=== PATIENT | male | born 1995 | race Caucasian/White ===

== ENCOUNTER 2018-01-15 20:05 | Inpatient (IN) | payer BC ==
[2018-01-15] MEDS ORDERED: diphenhydrAMINE 50 MG/ML 1 ML VIAL IVP STA (20:15)
[2018-01-15] MEDS ORDERED: methylPREDNISolone SOD SUCCI 125 MG/2 ML VIAL IV STA (20:17)
[2018-01-15] MEDS ORDERED: FAMOTIDINE 20 MG/2 ML VIAL IV STA (20:17)
[2018-01-15] MEDS ORDERED: IPRATROPIUM-ALBUTEROL 3 ML NEB INHALATION STA (20:24)
--- NOTE | 2018-01-15 20:29 | ED ---
General Adult HPI - General Chief complaint: Allergic Reaction Stated complaint: allergic reaction Time Seen by Provider: 01/15/18 20:13 Source: patient, family, RN notes reviewed Mode of arrival: wheelchair Limitations: no limitations - History of Present Illness Initial comments: Patient is a pleasant 22-year-old male presenting to the emergency department for concern regarding ALLERGIC reaction. Patient does have a history of ALLERGIES to pistachios. Patient was eating cashews today. Patient is concerned now he is having a reaction. Patient mostly complains of swelling around his eyes. Patient states his skin is only slightly itchy. Patient does admit to having some swelling of his throat, and mouth. Patient does admit to feeling somewhat short of breath. Symptoms just started prior to arrival. - Related Data Allergies Allergy/AdvReac Type Severity Reaction Status Date / Time pistachio nut Allergy Anaphylaxis Verified 01/15/18 20:11 Review of Systems ROS Statement: Those systems with pertinent positive or pertinent negative responses have been documented in the HPI. ROS Other: All systems not noted in ROS Statement are negative. Constitutional: Denies: fever Eyes: Reports: other (Swelling of the periorbital region) ENT: Denies: ear pain Respiratory: Reports: dyspnea Cardiovascular: Denies: chest pain Endocrine: Denies: fatigue Gastrointestinal: Denies: abdominal pain Genitourinary: Denies: dysuria Musculoskeletal: Denies: back pain Skin: Denies: rash Neurological: Denies: weakness Past Medical History Past Medical History: No Reported History History of Any Multi-Drug Resistant Organisms: None Reported Past Surgical History: No Surgical Hx Reported Past Psychological History: No Psychological Hx Reported Smoking Status: Never smoker Past Alcohol Use History: Occasional Past Drug Use History: None Reported General Exam Limitations: no limitations General appearance: alert Head exam: Present: atraumatic Eye exam: Present: other (Angioedema of the periorbital region, moderate to severe) ENT exam: Present: other (Mild perioral angioedema. Mild angioedema of the tongue. Mild to moderate angioedema of the pharynx.) Neck exam: Present: normal inspection Respiratory exam: Present: wheezes (Mild expiratory wheeze). Absent: respiratory distress Cardiovascular Exam: Present: regular rate, normal rhythm GI/Abdominal exam: Present: soft. Absent: tenderness Extremities exam: Present: normal inspection Neurological exam: Present: alert Psychiatric exam: Present: normal affect, normal mood Skin exam: Present: urticaria Course Vital Signs 01/15/18 01/15/18 01/15/18 20:11 20:30 20:32 Temperature 97.2 F L Pulse Rate 158 H 135 H 135 H Respiratory 20 22 Rate Blood Pressure 141/88 143/79 O2 Sat by Pulse 96 97 Oximetry 01/15/18 01/15/18 20:36 21:05 Temperature Pulse Rate 132 H 117 H Respiratory 18 Rate Blood Pressure 126/82 O2 Sat by Pulse 96 Oximetry Medical Decision Making - Medical Decision Making Patient reexamined and is mildly improved. No respiratory distress. Angioedema has improved approximately 15%. Patient is updated on plan. Case discussed in detail with Dr. Rucker, who will admit for Dr. Nichols. Case is also discussed in detail with Dr. Patel, who will consult for critical care. He does recommend using Decadron 6 mg every 4 hours rather than solu Medrol. Critical Care Time Critical Care Time: Yes Total Critical Care Time: 34 Disposition Clinical Impression: Angioedema, Anaphylaxis Disposition: ADMITTED IP TO THIS [facility] Condition: Serious Is patient prescribed a controlled substance at d/c from ED?: No Referrals: None,Stated [REFERRING] - 1-2 days Decision Time: 21:26
[2018-01-15] MEDS: SODIUM CHLORIDE 0.9% 1,000 ML IV STA ×2 (20:31→22:43)
[2018-01-15] MEDS ORDERED: IPRATROPIUM-ALBUTEROL 3 ML NEB INHALATION PRN (21:26)
[2018-01-15] MEDS ORDERED: diphenhydrAMINE 50 MG/ML 1 ML VIAL IVP PRN (21:27)
[2018-01-15] MEDS ORDERED: NALOXONE 0.4 MG/ML 1 ML VIAL IV PRN (21:28)
[2018-01-15 22:16] LABS: Glucose,Whole Blood 111 mg/dL (75-99)
[2018-01-15 22:37] VITALS: BMI 27.6
[2018-01-15] MEDS: SODIUM CHLORIDE 0.9% 1,000 ML IV SCH (22:43)
[2018-01-16] MEDS: DEXAMETHASONE SOD PHOSPHATE 4 MG/ML 1 ML VIAL IV SCH ×5 (00:25→17:41)
[2018-01-16] MEDS ORDERED: ARTIFICIAL TEARS-HYPROMELLOSE DROPS 15 ML BTL BOTH EYES PRN (04:01)
[2018-01-16 06:54] LABS: Basophils % (A) 0 %; Eosinophils % (A) 1 %; HCT 45.3 % (39.0-53.0); HGB 15.2 gm/dL (13.0-17.5); Lymphocytes # (A) 0.7 k/uL (1.0-4.8); Lymphocytes % (A) 9 %; MCH 30.1 pg (25.0-35.0); MCHC 33.6 g/dL (31.0-37.0); MCV 89.8 fL (80.0-100.0); Mean Platelet Volume 6.3; Monocytes # (A) 0.1 k/uL (0-1.0); Monocytes % (A) 1 %; Neutrophils % (A) 89 %; Platelet Count 225 k/uL (150-450); RBC 5.04 m/uL (4.30-5.90); RDW 12.9 % (11.5-15.5); WBC 7.9 k/uL (3.8-10.6)
[2018-01-16 07:12] LABS: Anion Gap 15 mmol/L; Blood Urea Nitrogen 9 mg/dL (9-20); Calcium 8.8 mg/dL (8.4-10.2); Carbon Dioxide 21 mmol/L (22-30); Chloride 103 mmol/L (98-107); Glucose 158 mg/dL (74-99); Magnesium 1.8 mg/dL (1.6-2.3); Phosphorus 3.9 mg/dL (2.5-4.5); Potassium 4.4 mmol/L (3.5-5.1); Sodium 139 mmol/L (137-145)
[2018-01-16] MEDS: SODIUM CHLORIDE 0.9% 1,000 ML IV SCH (07:30)
[2018-01-16] MEDS ORDERED: SODIUM CHLORIDE 0.9% 1,000 ML IV SCH (09:00)
[2018-01-16] MEDS ORDERED: FAMOTIDINE 20 MG/2 ML VIAL IV SCH (09:00)
[2018-01-16] MEDS: INSULIN ASPART 100 UNIT/ML 1 ML 10 ML VIAL SQ SCH ×2 (12:02→17:41)
[2018-01-16 12:09] LABS: Glucose,Whole Blood 128 mg/dL (75-99)
--- NOTE | 2018-01-16 13:31 | P.HPIM ---
History of Present Illness H&P Date: 01/16/18 Chief Complaint: Anaphylactic reaction This is 22 years old male with past medical history significant for ALLERGY to nuts presents to the hospital with severe anaphylactic reaction after eating cashews. Patient stated that he had some ALLERGIC reaction with eating pistachios long time ago and I was only ticklish feeling in his throat at this time after he ate cashews he experienced lip swelling facial swelling to the point where his eyes were almost closed and patient seek emergent medical attention by coming to the emergency department. Patient was treated with Benadryl and steroids and admitted later to the intensive care unit for further evaluation. Agent was seen by critical care and felt stable for the discharge from critical care unit and transferred to the general medical floor where patient symptoms resolved completely this morning and he feels 100% back normal I would like to go home as soon as possible mother at the bedside and other significant other's Review of Systems 14 systems reviewed and negative except as above Past Medical History Past Medical History: No Reported History History of Any Multi-Drug Resistant Organisms: None Reported Past Surgical History: No Surgical Hx Reported Past Psychological History: No Psychological Hx Reported Smoking Status: Never smoker Past Alcohol Use History: Occasional Past Drug Use History: None Reported Medications and Allergies Allergies Allergy/AdvReac Type Severity Reaction Status Date / Time cashew nut Allergy Anaphylaxis Verified 01/16/18 07:51 pistachio nut Allergy Anaphylaxis Verified 01/15/18 20:11 Physical Exam Vitals: Vital Signs Temp Pulse Pulse Resp BP BP Pulse Ox 01/16/18 11:07 98.9 F 92 20 135/76 96 01/16/18 09:00 99 26 H 125/69 98 01/16/18 08:00 98.7 F 97 20 113/64 97 01/16/18 07:00 90 15 102/63 97 01/16/18 06:30 90 19 102/63 97 01/16/18 06:00 90 20 91/61 96 01/16/18 05:30 92 23 91/61 97 01/16/18 05:00 101 H 21 117/60 98 01/16/18 04:30 89 18 117/60 98 01/16/18 04:00 98.2 F 92 17 113/64 97 01/16/18 03:30 97 25 H 113/64 96 01/16/18 03:00 89 0 L 102/57 96 01/16/18 02:30 85 8 L 102/57 97 01/16/18 02:00 88 8 L 96/50 97 01/16/18 01:30 94 20 96/50 98 01/16/18 01:00 97 20 106/57 98 01/16/18 00:30 103 H 22 106/57 97 01/16/18 00:15 97 12 102/55 98 01/16/18 00:00 97.9 F 96 15 102/55 98 01/15/18 23:45 99 12 102/55 98 01/15/18 23:30 102 H 12 102/55 98 01/15/18 23:15 101 H 5 L 126/75 98 01/15/18 23:00 104 H 12 126/75 98 01/15/18 22:45 107 H 9 L 126/75 97 01/15/18 22:30 103 H 21 126/75 97 01/15/18 22:17 106 H 01/15/18 21:52 97.6 F 117 H 18 117/65 96 01/15/18 21:51 97.4 F L 01/15/18 21:05 117 H 18 126/82 96 01/15/18 20:36 132 H 01/15/18 20:32 135 H 22 143/79 97 01/15/18 20:30 135 H 01/15/18 20:11 97.2 F L 158 H 20 141/88 96 Intake and Output 01/15/18 01/16/18 01/16/18 22:59 06:59 14:59 Intake Total 1100 850 Balance 1100 850 Intake: IV 1100 200 Sodium Chloride 0.9% 1, 200 200 000 ml @ 100 mls/hr IV . Q10H [facility] Rx#:[id number] Sodium Chloride 0.9% 1, 900 000 ml @ 150 mls/hr IV . Q6H40M [facility] Rx#:[id number] Intake, IV Titration 50 Amount Sodium Chloride 0.9% 1, 50 000 ml @ 50 mls/hr IV . Q20H [facility] Rx#:[id number] Oral 600 Other: Voiding Method Toilet # Voids 1 Weight 87.5 kg 87.5 kg Gen.: in stated age, no acute distress, no facial swelling and lip swelling or eye swelling Heart: Normal S1-S2 Lungs: Clear to auscultation bilaterally Abdomen: Soft, no tenderness, positive bowel sounds in all 4 quadrant no guarding or rebound Skin: No new rash Psych: Alert and oriented 3 Neuro: No focal deficit Results CBC & Chem 7: 01/16/18 05:51 01/16/18 05:51 Labs: Abnormal Lab Results - Last 24 Hours (Table) 01/15/18 01/16/18 01/16/18 Range/Units 22:14 05:51 05:51 Lymphocytes # 0.7 L (1.0-4.8) k/uL Carbon Dioxide 21 L (22-30) mmol/L Glucose 158 H (74-99) mg/dL POC Glucose (mg/dL) 111 H (75-99) mg/dL 01/16/18 Range/Units 11:54 Lymphocytes # (1.0-4.8) k/uL Carbon Dioxide (22-30) mmol/L Glucose (74-99) mg/dL POC Glucose (mg/dL) 128 H (75-99) mg/dL Thrombosis Risk Factor Assmnt - Choose All That Apply Any of the Below Risk Factors Present?: No Assessment and Plan Assessment: 1. Anaphylactic reaction. 2. ALLERGY to cashews. 3. Hyperglycemia likely related to steroid use Plan: I had long discussion with patient and his mother at the bedside who both requested that patient goes home today as he is not supposed to go to his own house and he would be going home with his mother patient understands the necessity to return to the hospital if he experienced worsening in the symptoms or having other lip or tongue swelling or having difficulty in breathing patient educated about the use of EpiPen and the future and to avoid allergens as we discussed today including oral knots until he is seen by leasing specialist on outpatient basis to perform all the ALLERGY testing patient was prescribed EpiPen number to and prednisone 80 mg on the base of 1 mg/g for 3 consecutive days patient will receive his last status of Decadron and be discharged home after that
--- NOTE | 2018-01-16 13:32 | P.DS ---
Providers Date of admission: 01/15/18 21:25 Attending physician: Consuelo Scott Consults: 01/15/18 21:28 Consult Physician Stat Consulting Provider: Juan Carlos Patel Reason/Comments: critical care Do you want consulting provider notified?: Yes Primary care physician: [facility] Course: This is 22 years old male who presented to the hospital with anaphylactic reaction discharge planning discussed with his mother at length who was at the bedside and I had long discussion with patient and his mother at the bedside who both requested that patient goes home today as he is not supposed to go to his own house and he would be going home with his mother patient understands the necessity to return to the hospital if he experienced worsening in the symptoms or having other lip or tongue swelling or having difficulty in breathing patient educated about the use of EpiPen and the future and to avoid allergens as we discussed today including oral knots until he is seen by mis specialist on outpatient basis to perform all the ALLERGY testing patient was prescribed EpiPen number to and prednisone 80 mg on the base of 1 mg /g for 3 consecutive days patient will receive his last status of Decadron and be discharged home after that Patient Condition at Discharge: Serious Plan - Discharge Summary Follow up Appointment(s)/Referral(s): None,Stated [REFERRING] - 1-2 days Patient Instructions/Handouts: Food Allergy (DC), Peanut Allergy (GEN) Activity/Diet/Wound Care/Special Instructions: 1.) Regular diet - AVOID NUTS 2.) Schedule allergy testing (patient to call for appointment on Wednesday12/18/17) 3.) Patient to carry Epi-pen in case of allergic reaction
[2018-01-16 15:23] VITALS: BP 133/77; PULSE 103; RESP 16; TEMP 97.9
[2018-01-16 17:32] LABS: Glucose,Whole Blood 131 mg/dL (75-99)
--- NOTE | 2018-01-16 18:09 | P.CNPUL ---
History of Present Illness Consult date: 01/16/18 Requesting physician: Consuelo Scott Reason for consult: other (Acute angioedema an anaphylactic reaction) Chief complaint: Tongue and lips swelling after eating peanuts History of present illness: This is a 22-year-old white male, no previous significant medical history, patient presented with severe anaphylactic reaction after eating cashews last night. Patient was noted to have significant swelling of his lips, tongue was quite swollen, patient was not stridorous, received Decadron, Benadryl, Pepcid, admitted to the ICU, and I was asked to see him on consultation. Patient was placed on Decadron overnight, continued Benadryl and Pepcid, and I saw him early this morning, patient is doing great. He is basically back to normal, asymptomatic. No more swelling of the tongue or the lips, no shortness of breath, no cough, no wheezing. Patient never had a similar history in the past. Review of Systems 14 point review of systems obtained, please refer to pertinent positives in HPI. Otherwise remaining systems are negative. Past Medical History Past Medical History: No Reported History History of Any Multi-Drug Resistant Organisms: None Reported Past Surgical History: No Surgical Hx Reported Past Psychological History: No Psychological Hx Reported Smoking Status: Never smoker Past Alcohol Use History: Occasional Past Drug Use History: None Reported Medications and Allergies Home Medications Medication Instructions Recorded Confirmed Type EPINEPHrine (Auto Inject) [Epipen] 0.3 mg IM ONCE PRN #2 syringe 01/16/18 Rx predniSONE 80 mg PO DAILY 3 Days #12 tab 01/16/18 Rx Allergies Allergy/AdvReac Type Severity Reaction Status Date / Time cashew nut Allergy Anaphylaxis Verified 01/16/18 14:39 pistachio nut Allergy Anaphylaxis Verified 01/16/18 14:39 Physical Exam Vitals: Vital Signs Temp Pulse Pulse Resp BP BP Pulse Ox 01/16/18 15:31 16 01/16/18 15:00 97.9 F 103 H 16 133/77 97 01/16/18 11:07 98.9 F 92 20 135/76 96 01/16/18 09:00 99 26 H 125/69 98 01/16/18 08:00 98.7 F 97 20 113/64 97 01/16/18 07:00 90 15 102/63 97 01/16/18 06:30 90 19 102/63 97 01/16/18 06:00 90 20 91/61 96 18 05:30 92 23 91/61 97 01/16/18 05:00 101 H 21 117/60 98 01/16/18 04:30 89 18 117/60 98 01/16/18 04:00 98.2 F 92 17 113/64 97 01/16/18 03:30 97 25 H 113/64 96 01/16/18 03:00 89 0 L 102/57 96 01/16/18 02:30 85 8 L 102/57 97 01/16/18 02:00 88 8 L 96/50 97 01/16/18 01:30 94 20 96/50 98 01/16/18 01:00 97 20 106/57 98 01/16/18 00:30 103 H 22 106/57 97 01/16/18 00:15 97 12 102/55 98 01/16/18 00:00 97.9 F 96 15 102/55 98 01/15/18 23:45 99 12 102/55 98 01/15/18 23:30 102 H 12 102/55 98 01/15/18 23:15 101 H 5 L 126/75 98 01/15/18 23:00 104 H 12 126/75 98 01/15/18 22:45 107 H 9 L 126/75 97 01/15/18 22:30 103 H 21 126/75 97 01/15/18 22:17 106 H 01/15/18 21:52 97.6 F 117 H 18 117/65 96 01/15/18 21:51 97.4 F L 01/15/18 21:05 117 H 18 126/82 96 01/15/18 20:36 132 H 01/15/18 20:32 135 H 22 143/79 97 01/15/18 20:30 135 H 01/15/18 20:11 97.2 F L 158 H 20 141/88 96 Intake and Output 01/16/18 01/16/18 01/16/18 06:59 14:59 22:59 Intake Total 1100 850 Balance 1100 850 Intake: IV 1100 200 Sodium Chloride 0.9% 1, 200 200 000 ml @ 100 mls/hr IV . Q10H [facility] Rx#:[id number] Sodium Chloride 0.9% 1, 900 000 ml @ 150 mls/hr IV . Q6H40M [facility] Rx#:[id number] Intake, IV Titration 50 Amount Sodium Chloride 0.9% 1, 50 000 ml @ 50 mls/hr IV . Q20H [facility] Rx#:[id number] Oral 600 Other: Voiding Method Toilet Toilet # Voids 1 2 Weight 87.5 kg Physical Exam: Revealed a 22-year-old white male in no distress. Head: Atraumatic, normocephalic. HEENT:[Neck is supple.] [No neck masses.] [No thyromegaly.] [No JVD.] Chest: [Clear throughout, no crackles, no rhonchi, no wheezes.] Cardiac Exam: [Normal S1 and S2, no S3 gallop, no murmur.] Abdomen: [Soft, nontender, no megaly, no rebound, no guarding, normal bowel sounds.] Extremities: [No clubbing, no edema, no cyanosis.] Neurological Exam: [No focal neurologic deficit.] Psychiatric: Normal mood affect and mental status exam Lymphatics: No lymphadenopathy. Skin: Intact, no rashes, no erythema, Results - Laboratory Findings CBC and BMP: 01/16/18 05:51 01/16/18 05:51 Abnormal lab findings: Abnormal Labs 01/15/18 01/16/18 01/16/18 22:14 05:51 05:51 Lymphocytes # 0.7 L Carbon Dioxide 21 L Glucose 158 H POC Glucose (mg/dL) 111 H 01/16/18 01/16/18 11:54 17:25 Lymphocytes # Carbon Dioxide Glucose POC Glucose (mg/dL) 128 H 131 H Assessment and Plan Assessment: Impression: Acute anaphylactic reaction with acute angioedema secondary to severe ALLERGIC reaction to cashews. Recommendation: Patient to be transferred out of the ICU, could even be considered for discharge home today, must be discharged on his present meds including prednisone burst and taper, Benadryl, Zantac, must have an EpiPen prescription, must avoid eating all nuts,, and reevaluate on outpatient basis. Time with Patient: Greater than 30
== END 2018-01-16 18:04 | disposition home or self-care (01) | DRG 916 ==
LOC: EC 20:05 → 6ICU 21:25 → 4MS4W 01-16 10:40
PROVIDERS: ADMIT Internal Medicine; ATTEND Internal Medicine
DX: T78.05XA Anaphylactic reaction due to tree nuts and seeds, initial encounter (principal); T38.0X5A Adverse effect of glucocorticoids and synthetic analogues, initial encounter; T78.3XXA Angioneurotic edema, initial encounter; R73.9 Hyperglycemia, unspecified
CPT/HCPCS: 80048; 83735; 84100; 85025; 94640; 96374; 96375; 99285

== ENCOUNTER 2021-08-22 00:09 | Emergency (ER) | payer BC ==
[2021-08-22 00:20] VITALS: TEMP 98.2
[2021-08-22] MEDS ORDERED: SODIUM CHLORIDE 0.9% 1,000 ML IV STA (00:23)
[2021-08-22 00:47] LABS: Basophils # (A) 0.1 k/uL (0-0.2); Basophils % (A) 1 %; Eosinophils # (A) 0.4 k/uL (0-0.7); Eosinophils % (A) 4 %; HCT 44.6 % (39.0-53.0); HGB 14.5 gm/dL (13.0-17.5); Lymphocytes # (A) 2.5 k/uL (1.0-4.8); Lymphocytes % (A) 30 %; MCH 29.5 pg (25.0-35.0); MCHC 32.6 g/dL (31.0-37.0); MCV 90.7 fL (80.0-100.0); Mean Platelet Volume 6.8; Monocytes # (A) 0.4 k/uL (0-1.0); Monocytes % (A) 4 %; Neutrophils # (A) 4.9 k/uL (1.3-7.7); Neutrophils % (A) 59 %; Platelet Count 258 k/uL (150-450); RBC 4.92 m/uL (4.30-5.90); RDW 11.7 % (11.5-15.5); WBC 8.3 k/uL (3.8-10.6)
[2021-08-22 00:58] VITALS: BP 126/87
[2021-08-22 01:06] LABS: ALT 113 U/L (4-49); AST 54 U/L (17-59); African American GFR (CKD) >90 (>60 ml/min/1.73 sqM); Albumin 4.8 g/dL (3.5-5.0); Alkaline Phosphatase 41 U/L (38-126); Amylase 61 U/L (30-110); Anion Gap 12 mmol/L; Blood Urea Nitrogen 17 mg/dL (9-20); Calcium 9.7 mg/dL (8.4-10.2); Carbon Dioxide 22 mmol/L (22-30); Chloride 104 mmol/L (98-107); Glucose 107 mg/dL (74-99); Lipase 57 U/L (23-300); Magnesium 1.8 mg/dL (1.6-2.3); Non-African American GFR(CKD) >90 (>60 ml/min/1.73 sqM); Potassium 4.2 mmol/L (3.5-5.1); Sodium 138 mmol/L (137-145); Total Bilirubin 0.9 mg/dL (0.2-1.3); Total Protein 7.8 g/dL (6.3-8.2)
--- NOTE | 2021-08-22 01:27 | XR ---
EXAMINATION TYPE: XR chest 2V DATE OF EXAM: 08/22/2021 COMPARISON: NONE HISTORY: Chest pain TECHNIQUE: 2 views FINDINGS: Heart and mediastinum are normal. Lungs are clear. Diaphragm is normal. Bony thorax is norm al. There are chest leads. IMPRESSION: Normal chest.
--- NOTE | 2021-08-22 01:37 | ED ---
General Adult HPI - General Chief complaint: Chest Pain Stated complaint: Chest Pain Time Seen by Provider: 08/22/21 00:22 Source: patient, RN notes reviewed Mode of arrival: ambulatory Limitations: no limitations - History of Present Illness Initial comments: Patient is a 26-year-old male that presents to the emergency department complaining of left-sided chest pain without radiation. He notes he recently got over Covid. He notes the last several days she's felt worse than when he did when he had Covid. He denied any exacerbating factors. He denied any alleviating factors. He notes that the pain comes and goes on its own. He denied any shortness of breath headache nausea vomiting diarrhea constipation fever fatigue chills. - Related Data Previous Rx's Medication Instructions Recorded EPINEPHrine (Auto Inject) [Epipen] 0.3 mg IM ONCE PRN #2 syringe 01/16/18 predniSONE [Deltasone] 80 mg PO DAILY 3 Days #12 tab 01/16/18 Allergies Allergy/AdvReac Type Severity Reaction Status Date / Time cashew nut Allergy Anaphylaxis Verified 01/16/18 14:39 pistachio nut Allergy Anaphylaxis Verified 01/16/18 14:39 shellfish derived Allergy Unknown Verified 08/22/21 00:19 Review of Systems ROS Statement: Those systems with pertinent positive or pertinent negative responses have been documented in the HPI. ROS Other: All systems not noted in ROS Statement are negative. Past Medical History Past Medical History: No Reported History Additional Past Medical History / Comment(s): covid 08/19 History of Any Multi-Drug Resistant Organisms: None Reported Past Surgical History: No Surgical Hx Reported Past Psychological History: No Psychological Hx Reported Smoking Status: Never smoker Past Alcohol Use History: Occasional Past Drug Use History: None Reported General Exam Limitations: no limitations General appearance: alert, in no apparent distress Head exam: Present: atraumatic, normocephalic, normal inspection Eye exam: Present: normal appearance, PERRL, EOMI. Absent: scleral icterus, conjunctival injection, periorbital swelling ENT exam: Present: normal exam, mucous membranes moist Neck exam: Present: normal inspection Respiratory exam: Present: normal lung sounds bilaterally. Absent: respiratory distress, wheezes, rales, rhonchi, stridor Cardiovascular Exam: Present: regular rate, normal rhythm, normal heart sounds. Absent: systolic murmur, diastolic murmur, rubs, gallop, clicks GI/Abdominal exam: Present: soft, normal bowel sounds. Absent: distended, tenderness, guarding, rebound, rigid Extremities exam: Present: normal inspection, full ROM, normal capillary refill. Absent: tenderness, pedal edema, joint swelling, calf tenderness Neurological exam: Present: alert, oriented X3 Psychiatric exam: Present: normal affect, normal mood Skin exam: Present: warm, dry, intact, normal color. Absent: rash Course Vital Signs 08/22/21 08/22/21 08/22/21 00:16 00:53 00:57 Temperature 98.2 F Pulse Rate 87 79 Pulse Rate [ 77 Die Polisher ] Respiratory 20 20 Rate Blood Pressure 149/94 126/87 O2 Sat by Pulse 98 97 Oximetry EKG Findings - EKG Comments: EKG Findings:: Ventricular rate 97 bpm, TN interval 190 ms, QRS duration 96 ms, QTC 436 ms, normal sinus rhythm with sinus arrhythmia, possible left atrial enlargement, anterior infarct age undetermined, abnormal ECG. Medical Decision Making - Medical Decision Making 18-year-old male complaining left sided chest pain without radiation for the past several days. Labs, EKG, ekg monitor, chest x-ray, 1 L normal saline ordered. Labs unremarkable with a normal limits, troponin negative. Chest x-ray shows normal chest. EKG within normal limits. case discussed with Dr. Santo - Lab Data Result diagrams: 08/22/21 00:38 08/22/21 00:38 Lab Results 08/22/21 08/22/21 08/22/21 Range/Units 00:38 00:38 00:38 WBC 8.3 (3.8-10.6) k/uL RBC 4.92 (4.30-5.90) m/uL Hgb 14.5 (13.0-17.5) gm/dL Hct 44.6 (39.0-53.0) % MCV 90.7 (80.0-100.0) fL MCH 29.5 (25.0-35.0) pg MCHC 32.6 (31.0-37.0) g/dL RDW 11.7 (11.5-15.5) % Plt Count 258 (150-450) k/uL MPV 6.8 Neutrophils % 59 % Lymphocytes % 30 % Monocytes % 4 % Eosinophils % 4 % Basophils % 1 % Neutrophils # 4.9 (1.3-7.7) k/uL Lymphocytes # 2.5 (1.0-4.8) k/uL Monocytes # 0.4 (0-1.0) k/uL Eosinophils # 0.4 (0-0.7) k/uL Basophils # 0.1 (0-0.2) k/uL D-Dimer (<0.60) mg/L FEU Sodium 138 (137-145) mmol/L Potassium 4.2 (3.5-5.1) mmol/L Chloride 104 (98-107) mmol/L Carbon Dioxide 22 (22-30) mmol/L Anion Gap 12 mmol/L BUN 17 (9-20) mg/dL Creatinine 0.92 (0.66-1.25) mg/dL Est GFR (CKD-EPI)AfAm >90 (>60 ml/min/1.73 sqM) Est GFR (CKD-EPI)NonAf >90 (>60 ml/min/1.73 sqM) Glucose 107 H (74-99) mg/dL Calcium 9.7 (8.4-10.2) mg/dL Magnesium 1.8 (1.6-2.3) mg/dL Total Bilirubin 0.9 (0.2-1.3) mg/dL AST 54 (17-59) U/L ALT 113 H (4-49) U/L Alkaline Phosphatase 41 (38-126) U/L Troponin I <0.012 (0.000-0.034) ng/mL Total Protein 7.8 (6.3-8.2) g/dL Albumin 4.8 (3.5-5.0) g/dL Amylase 61 (30-110) U/L Lipase 57 (23-300) U/L 08/22/21 Range/Units 00:38 WBC (3.8-10.6) k/uL RBC (4.30-5.90) m/uL Hgb (13.0-17.5) gm/dL Hct (39.0-53.0) % MCV (80.0-100.0) fL MCH (25.0-35.0) pg MCHC (31.0-37.0) g/dL RDW (11.5-15.5) % Plt Count (150-450) k/uL MPV Neutrophils % % Lymphocytes % % Monocytes % % Eosinophils % % Basophils % % Neutrophils # (1.3-7.7) k/uL Lymphocytes # (1.0-4.8) k/uL Monocytes # (0-1.0) k/uL Eosinophils # (0-0.7) k/uL Basophils # (0-0.2) k/uL D-Dimer <0.17 (<0.60) mg/L FEU Sodium (137-145) mmol/L Potassium (3.5-5.1) mmol/L Chloride (98-107) mmol/L Carbon Dioxide (22-30) mmol/L Anion Gap mmol/L BUN (9-20) mg/dL Creatinine (0.66-1.25) mg/dL Est GFR (CKD-EPI)AfAm (>60 ml/min/1.73 sqM) Est GFR (CKD-EPI)NonAf (>60 ml/min/1.73 sqM) Glucose (74-99) mg/dL Calcium (8.4-10.2) mg/dL Magnesium (1.6-2.3) mg/dL Total Bilirubin (0.2-1.3) mg/dL AST (17-59) U/L ALT (4-49) U/L Alkaline Phosphatase (38-126) U/L Troponin I (0.000-0.034) ng/mL Total Protein (6.3-8.2) g/dL Albumin (3.5-5.0) g/dL Amylase (30-110) U/L Lipase (23-300) U/L - Radiology Data Radiology results: report reviewed, image reviewed Chest x-ray: Normal chest. Disposition Clinical Impression: Atypical chest pain, Anxiety Disposition: HOME SELF-CARE Condition: Stable Instructions (If sedation given, give patient instructions): Chest Pain (ED) Additional Instructions: Please return to the Emergency Department if symptoms worsen or any other concerns. Follow-up with primary care 1-2 days. Is patient prescribed a controlled substance at d/c from ED?: No Referrals: None,Stated [Primary Care Provider] - 1-2 days Time of Disposition: 01:38
[2021-08-22 02:39] VITALS: PULSE 67; RESP 17
== END 2021-08-22 02:36 | disposition home or self-care (01) ==
LOC: EC 00:09
DX: R07.89 Other chest pain (principal); F41.9 Anxiety disorder, unspecified
CPT/HCPCS: 36415; 71046; 80053; 82150; 83690; 83735; 84484; 85025; 85379; 93005; 96360; 99285

== ENCOUNTER 2023-04-30 13:59 | Emergency (ER) | payer OTHER, BC ==
[2023-04-30 14:14] VITALS: TEMP 98
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
[2023-04-30] MEDS ORDERED: IBUPROFEN 800 MG TAB PO STA (15:48)
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
[2023-04-30 16:00] VITALS: BP 122/68; PULSE 68; RESP 18
== END 2023-04-30 16:00 | disposition home or self-care (01) ==
LOC: EC 13:59
DX: M25.552 Pain in left hip (principal); M25.522 Pain in left elbow; Z91.018 Allergy to other foods; Z91.013 Allergy to seafood; Z88.8 Allergy status to other drugs, medicaments and biological substances; Z86.16 Personal history of COVID-19; V43.52XA Car driver injured in collision with other type car in traffic accident, initial encounter; Y92.411 Interstate highway as the place of occurrence of the external cause
CPT/HCPCS: 71046; 72170; 99284

== ENCOUNTER 2023-08-12 13:37 | Emergency (ER) | payer BC ==
[2023-08-12] MEDS ORDERED: methylPREDNISolone SOD SUCCI 125 MG/2 ML VIAL IV STA (14:38)
[2023-08-12] MEDS ORDERED: SODIUM CHLORIDE 0.9% 1,000 ML IV STA (14:38)
[2023-08-12] MEDS ORDERED: FAMOTIDINE 20 MG/2 ML VIAL IV STA (14:38)
--- NOTE | 2023-08-12 14:57 | ED ---
Allergic Reaction HPI - General Chief complaint: Allergic Reaction Stated complaint: Allergic reaction Time Seen by Provider: 08/12/23 14:22 Source: patient, RN notes reviewed Mode of arrival: ambulatory Limitations: no limitations - History of Present Illness Initial Comments: This is a 28-year-old male who presents to the emergency department for concerns of an allergic reaction. States that he ate a chocolate bar that contained almonds this morning, and he was unaware that it contained almonds until after he started eating it. States that his throat started to feel scratchy afterwards and he took 2 Benadryl. He feels like symptoms started to improve temporarily, but then worsened again. He currently feels like his throat is scratchy again and feels somewhat swollen, he is fatigued, and he has some generalized itching. MD Complaint: allergic reaction - Related Data Home Medications Medication Instructions Recorded Confirmed diphenhydrAMINE HCL [Benadryl] 75 mg PO ONCE PRN 08/12/23 08/12/23 Previous Rx's Medication Instructions Recorded EPINEPHrine (Auto Inject) [Epipen] 0.3 mg IM ONCE PRN #2 syringe 01/16/18 predniSONE 50 mg PO DAILY 5 Days #5 tab 08/12/23 Allergies Allergy/AdvReac Type Severity Reaction Status Date / Time cashew nut Allergy Anaphylaxis Verified 08/12/23 15:31 pistachio nut Allergy Anaphylaxis Verified 08/12/23 15:31 tree nut Allergy Anaphylaxis Verified 08/12/23 15:31 shellfish derived AdvReac allergy Verified 08/12/23 15:31 testing Review of Systems ROS Statement: Those systems with pertinent positive or pertinent negative responses have been documented in the HPI. ROS Other: All systems not noted in ROS Statement are negative. Past Medical History Past Medical History: No Reported History Additional Past Medical History / Comment(s): covid 08/19 History of Any Multi-Drug Resistant Organisms: None Reported Past Surgical History: No Surgical Hx Reported Past Psychological History: No Psychological Hx Reported Smoking Status: Never smoker Past Alcohol Use History: Occasional Past Drug Use History: None Reported General Exam Limitations: no limitations General appearance: alert, in no apparent distress Head exam: Present: atraumatic, normocephalic, normal inspection Respiratory exam: Present: normal lung sounds bilaterally. Absent: respiratory distress, wheezes, rales, rhonchi, stridor Cardiovascular Exam: Present: regular rate, normal rhythm, normal heart sounds. Absent: systolic murmur, diastolic murmur, rubs, gallop, clicks Neurological exam: Present: alert, oriented X3, CN II-XII intact Psychiatric exam: Present: normal affect, normal mood Skin exam: Present: warm, dry, intact, normal color. Absent: rash Course Vital Signs 08/12/23 08/12/23 08/12/23 14:12 15:22 18:05 Temperature 98 F 98.0 F Pulse Rate 64 66 73 Respiratory 17 18 18 Rate Blood Pressure 117/76 105/75 127/79 O2 Sat by Pulse 98 99 98 Oximetry Medical Decision Making - Medical Decision Making This is a 28-year-old male who presents to the emergency department for concerns of an allergic reaction. Was pt. sent in by a medical professional or institution? @ -No Did you speak to anyone other than the patient for history? @ -No Did you review nursing and triage notes? @ -Yes, and I agree, it is accurate with regards to the patient's symptoms. Were old charts reviewed? @ -No Differential Diagnosis? @ -Differential Allergic Reaction: Allergic reaction, panic attack, atopic dermatitis, contact dermatitis, sinusitis, pharyngitis, COVID, influenza, asthma exacerbation. This is not meant to be an all-inclusive list. EKG interpreted by me (3pts min.)? @ -Not obtained X-rays interpreted by me (1pt min.)? @ -Not obtained CT interpreted by me (1pt min.)? @ -Not obtained U/S interpreted by me (1pt. min.)? @ -Not obtained What testing was considered but not performed? (CT, X-rays, U/S, labs)? Why? @ -None What meds were considered but not given? Why? @ -None Did you discuss the management of the patient with other professionals? @ -No Did you reconcile home meds? @ -No Was smoking cessation discussed for >3mins.? @ -No Was critical care preformed (if so, how long)? @ -No Were there social determinants of health that impacted care today? How? (Homelessness, low income, unemployed, alcoholism, drug addiction, transportation, low edu. Level, literacy, decrease access to med. care, custodial, rehab)? @ -No Was there de-escalation of care discussed even if they declined? (Discuss DNR or withdrawal of care, Hospice)? @ -No What co-morbidities impacted this encounter? (DM, HTN, Smoking, COPD, CAD, Cancer, CVA, Hep., AIDS, mental health diagnosis, sleep apnea, morbid obesity)? @ -Tree nut allergy Was patient admitted / discharged? @ -Discharged. Patient was given an allergy cocktail containing IV fluids, Solu-Medrol, and Pepcid. Given that he had just had Benadryl and it was starting to make him sleepy, we avoided an additional dose of this at that time. Following medication administration he felt that his symptoms had significantly improved and he felt stable for discharge home. He was given a prescription for an additional 5 day course of prednisone and I advised to take this with Benadryl as well for any additional symptoms. Patient discharged home in stable condition. Undiagnosed new problem with uncertain prognosis? @ -None Drug Therapy requiring intensive monitoring for toxicity (Heparin, Nitro, Insulin, Cardizem)? @ -None Were any procedures done? @ -None Diagnosis/symptom? @ -Allergic reaction Acute, or Chronic, or Acute on Chronic? @ -Acute Uncomplicated (without systemic symptoms) or Complicated (systemic symptoms)? @ -Uncomplicated Side effects of treatment? @ -None Exacerbation, Progression, or Severe Exacerbation] @ -Not applicable Poses a threat to life or bodily function? @ -Not at this time given that symptoms have improved. Return precautions reviewed in depth, the patient is instructed to return to the emergency department with any new, worsening, or concerning symptoms. Patient verbalized understanding. This case was discussed in detail with the attending ED physician, Dr. Kyle. Presentation, findings, and treatment plan discussed in detail as well. Disposition Clinical Impression: Allergic reaction Disposition: HOME SELF-CARE Instructions (If sedation given, give patient instructions): Food Allergy (ED) Additional Instructions: Return to the emergency department with any new, worsening, or concerning symptoms. Take the prednisone daily for 5 days. You can continue to take Benadryl as needed as well. Follow up with your primary care provider in 1-2 days. Prescriptions: predniSONE 50 mg PO DAILY 5 Days #5 tab Is patient prescribed a controlled substance at d/c from ED?: No Referrals: None,Stated [Primary Care Provider] - 1-2 days
[2023-08-12 15:36] VITALS: RESP 18
[2023-08-12 18:22] VITALS: BP 127/79; PULSE 73; TEMP 98
== END 2023-08-12 18:07 | disposition home or self-care (01) ==
LOC: EC 13:37
DX: T78.05XA Anaphylactic reaction due to tree nuts and seeds, initial encounter (principal); Z91.018 Allergy to other foods; Z91.013 Allergy to seafood; Z86.16 Personal history of COVID-19
CPT/HCPCS: 99283; 96374; 96375; 96361; J2930; J3490

== ENCOUNTER 2024-11-09 18:15 | Emergency (ER) | payer BC ==
--- NOTE | 2024-11-09 19:13 | ED ---
Nausea/Vomiting/Diarrhea HPI - General Source: patient, RN notes reviewed Mode of arrival: ambulatory Limitations: no limitations <Williams Yousif - Last Filed: 11/09/24 19:10> - General Source: patient, RN notes reviewed Mode of arrival: ambulatory Limitations: no limitations - History of Present Illness MD complaint: nausea, vomiting, diarrhea <Elyse Zimmerman - Last Filed: 11/10/24 00:49> - General Chief complaint: Nausea/Vomiting/Diarrhea Stated complaint: nvd Time Seen by Provider: 11/09/24 18:29 - History of Present Illness Initial comments: Quick note: This is a 29-year-old male presenting with nausea/vomiting and diarrhea x 6 days. Patient states symptoms were manageable through the weekend before worsening on Wednesday, stating all fluid and food are either vomited or go right through him. Endorses associated dizziness, headache, weakness and anxiety. Patient also endorses regular daily EtOH use for the past several weeks, having 4-6 beers per day before stopping use about 1 week ago. Denies fever, chills, chest pain, dyspnea, abdominal pain, hematemesis, hematochezia, melena. (Williams Yousif) This is a 29-year-old male who presents to the emergency department for nausea and vomiting. States that he exhibited some of the symptoms over the weekend and they then improved. However, 2 days ago the nausea, vomiting, and diarrhea then returned and they have been fairly uncontrollable. He has been unable to keep anything down. He did also drink alcohol fairly regularly up until about a week ago with 4-6 beers a day. States that his abdomen has felt sore on occasions from the vomiting, but denies any nupur abdominal pain. Denies any fevers/chills or sick contacts. (Elyse Zimmerman) - Related Data Home Medications Medication Instructions Recorded Confirmed diphenhydrAMINE HCL [Benadryl] 75 mg PO ONCE PRN 08/12/23 08/12/23 Previous Rx's Medication Instructions Recorded EPINEPHrine (Auto Inject) [Epipen] 0.3 mg IM ONCE PRN #2 syringe 01/16/18 predniSONE 50 mg PO DAILY 5 Days #5 tab 08/12/23 Dicyclomine [Bentyl] 20 mg PO QID PRN #30 tablet 11/09/24 Ondansetron Odt [Zofran Odt] 4 mg PO Q8HR PRN #20 tab 11/09/24 Allergies Allergy/AdvReac Type Severity Reaction Status Date / Time cashew nut Allergy Anaphylaxis Verified 11/09/24 19:13 pistachio nut Allergy Anaphylaxis Verified 11/09/24 19:13 tree nut Allergy Anaphylaxis Verified 11/09/24 19:13 shellfish derived AdvReac allergy Verified 11/09/24 19:13 testing Review of Systems ROS Other: All systems not noted in ROS Statement are negative. <BenjaWilliams - Last Filed: 11/09/24 19:10> ROS Other: All systems not noted in ROS Statement are negative. <Elyse Zimmerman - Last Filed: 11/10/24 00:49> ROS Statement: Those systems with pertinent positive or pertinent negative responses have been documented in the HPI. Past Medical History Past Medical History: No Reported History Additional Past Medical History / Comment(s): covid 08/19 History of Any Multi-Drug Resistant Organisms: None Reported Past Surgical History: No Surgical Hx Reported Past Psychological History: No Psychological Hx Reported Smoking Status: Never smoker Past Alcohol Use History: Occasional Past Drug Use History: None Reported <BenjaWilliams - Last Filed: 11/09/24 19:10> General Exam <Williams Yousif - Last Filed: 11/09/24 19:10> Limitations: no limitations General appearance: alert, in no apparent distress Head exam: Present: atraumatic, normocephalic, normal inspection Respiratory exam: Present: normal lung sounds bilaterally. Absent: respiratory distress, wheezes, rales, rhonchi, stridor Cardiovascular Exam: Present: regular rate, normal rhythm GI/Abdominal exam: Present: soft, normal bowel sounds. Absent: distended, tenderness, guarding, rebound, rigid Neurological exam: Present: alert, oriented X3, CN II-XII intact Psychiatric exam: Present: normal affect, normal mood Skin exam: Present: warm, dry, intact, normal color. Absent: rash <Elyse Zimmerman - Last Filed: 11/10/24 00:49> - General Exam Comments Initial Comments: Visual Physical Exam Vital signs reviewed General: Well-appearing, nontoxic, no acute distress. Head: Normocephalic, atraumatic Eyes: PERRLA, EOMI ENT: Airway patent Chest: Nonlabored breathing Skin: No visual rash, normal skin tone Neuro: Alert and oriented 3 Musculoskeletal: No gross abnormalities (Williams Yousif) Course Vital Signs 11/09/24 11/09/24 19:08 23:46 Temperature 98.2 F 98.6 F Pulse Rate 71 67 Respiratory 16 17 Rate Blood Pressure 141/87 120/76 O2 Sat by Pulse 97 100 Oximetry Medical Decision Making <Williams Yousif - Last Filed: 11/09/24 19:10> - Lab Data Result diagrams: 11/09/24 19:34 11/09/24 19:34 <Elyse Zimmerman - Last Filed: 11/10/24 00:49> - Medical Decision Making I completed the quick note portion of this chart signed NICOLETTE Morse (Williams Yousif) This is a 29-year-old male who presents to the emergency department for nausea and vomiting. Was pt. sent in by a medical professional or institution? @ -No Did you speak to anyone other than the patient for history? @ -No Did you review nursing and triage notes? @ -Yes, and I agree, it is accurate with regards to the patient's symptoms. Were old charts reviewed? @ -No Differential Diagnosis? @ -Differential Nausea and Vomiting: Gastroenteritis, cholecystitis, appendicitis, pancreatitis, migraine, benign positional vertigo, food borne illness, pyelonephritis, irritable bowel syndrome, influenza, Covid, GERD, incarcerated hernia, intestinal obstruction, this is not meant to be an all-inclusive list. EKG interpreted by me (3pts min.)? @ -Not obtained X-rays interpreted by me (1pt min.)? @ -Not obtained CT interpreted by me (1pt min.)? @ -Not obtained U/S interpreted by me (1pt. min.)? @ -Not obtained What testing was considered but not performed? (CT, X-rays, U/S, labs)? Why? @ -None What meds were considered but not given? Why? @ -None Did you discuss the management of the patient with other professionals? @ -No Did you reconcile home meds? @ -No Was smoking cessation discussed for >3mins.? @ -No Was critical care preformed (if so, how long)? @ -No Were there social determinants of health that impacted care today? How? (Homelessness, low income, unemployed, alcoholism, drug addiction, transportation, low edu. Level, literacy, decrease access to med. care, intermediate, rehab)? @ -No Was there de-escalation of care discussed even if they declined? (Discuss DNR or withdrawal of care, Hospice)? @ -No What co-morbidities impacted this encounter? (DM, HTN, Smoking, COPD, CAD, Cancer, CVA, Hep., AIDS, mental health diagnosis, sleep apnea, morbid obesity)? @ -None Was patient admitted / discharged? @ -Discharged. Lab work demonstrates an elevation in LFTs, likely related to alcohol use. He was not exhibiting any abdominal pain. Lab work otherwise unremarkable. COVID, influenza, and RSV testing negative. Symptoms well- controlled in the emergency department and he was tolerating oral intake. Prescription for Zofran and Bentyl provided with dosing instructions reviewed. Advised he slowly advance his diet as tolerated and remain well-hydrated. Patient discharged home in stable condition. Case discussed with ED attending Dr. Bach. Return precautions reviewed in depth, the patient is instructed to return to the emergency department with any new, worsening, or concerning symptoms. Patient verbalized understanding. Undiagnosed new problem with uncertain prognosis? @ -None Drug Therapy requiring intensive monitoring for toxicity (Heparin, Nitro, Insulin, Cardizem)? @ -None Were any procedures done? @ -None Diagnosis/symptom? @ -Gastroenteritis Acute, or Chronic, or Acute on Chronic? @ -Acute Uncomplicated (without systemic symptoms) or Complicated (systemic symptoms)? @ -Uncomplicated Side effects of treatment? @ -None Exacerbation, Progression, or Severe Exacerbation] @ -Not applicable Poses a threat to life or bodily function? @ -No (Elyse Zimmerman) - Lab Data Lab Results 11/09/24 11/09/24 11/09/24 Range/Units 19:34 19:34 19:34 WBC 5.0 (3.8-10.6) k/uL RBC 4.91 (4.30-5.90) m/uL Hgb 15.2 (13.0-17.5) gm/dL Hct 46.1 (39.0-53.0) % MCV 93.8 (80.0-100.0) fL MCH 30.9 (25.0-35.0) pg MCHC 32.9 (31.0-37.0) g/dL RDW 12.0 (11.5-15.5) % Plt Count 197 (150-450) k/uL MPV 6.9 Neutrophils % 64 % Lymphocytes % 23 % Monocytes % 7 % Eosinophils % 2 % Basophils % 1 % Neutrophils # 3.2 (1.3-7.7) k/uL Lymphocytes # 1.1 (1.0-4.8) k/uL Monocytes # 0.4 (0-1.0) k/uL Eosinophils # 0.1 (0-0.7) k/uL Basophils # 0.0 (0-0.2) k/uL Sodium 137 (137-145) mmol/L Potassium 4.0 (3.5-5.1) mmol/L Chloride 100 (98-107) mmol/L Carbon Dioxide 26 (22-30) mmol/L Anion Gap 11 mmol/L BUN 11 (9-20) mg/dL Creatinine 0.81 (0.66-1.25) mg/dL Est GFR (CKD-EPI)AfAm >90 (>60 ml/min/1.73 sqM) Est GFR (CKD-EPI)NonAf >90 (>60 ml/min/1.73 sqM) Glucose 92 (74-99) mg/dL Plasma Lactic Acid Shun 0.6 L (0.7-2.0) mmol/L Calcium 9.3 (8.4-10.2) mg/dL Total Bilirubin 1.0 (0.2-1.3) mg/dL AST 84 H (17-59) U/L ALT 196 H (4-49) U/L Alkaline Phosphatase 42 (38-126) U/L Total Protein 7.6 (6.3-8.2) g/dL Albumin 5.0 (3.5-5.0) g/dL Lipase 86 (23-300) U/L Serum Alcohol <10 mg/dL Influenza Type A (PCR) (Not Detectd) Influenza Type B (PCR) (Not Detectd) RSV (PCR) (Not Detectd) SARS-CoV-2 (PCR) (Not Detectd) 11/09/24 Range/Units 19:34 WBC (3.8-10.6) k/uL RBC (4.30-5.90) m/uL Hgb (13.0-17.5) gm/dL Hct (39.0-53.0) % MCV (80.0-100.0) fL MCH (25.0-35.0) pg MCHC (31.0-37.0) g/dL RDW (11.5-15.5) % Plt Count (150-450) k/uL MPV Neutrophils % % Lymphocytes % % Monocytes % % Eosinophils % % Basophils % % Neutrophils # (1.3-7.7) k/uL Lymphocytes # (1.0-4.8) k/uL Monocytes # (0-1.0) k/uL Eosinophils # (0-0.7) k/uL Basophils # (0-0.2) k/uL Sodium (137-145) mmol/L Potassium (3.5-5.1) mmol/L Chloride (98-107) mmol/L Carbon Dioxide (22-30) mmol/L Anion Gap mmol/L BUN (9-20) mg/dL Creatinine (0.66-1.25) mg/dL Est GFR (CKD-EPI)AfAm (>60 ml/min/1.73 sqM) Est GFR (CKD-EPI)NonAf (>60 ml/min/1.73 sqM) Glucose (74-99) mg/dL Plasma Lactic Acid Shun (0.7-2.0) mmol/L Calcium (8.4-10.2) mg/dL Total Bilirubin (0.2-1.3) mg/dL AST (17-59) U/L ALT (4-49) U/L Alkaline Phosphatase (38-126) U/L Total Protein (6.3-8.2) g/dL Albumin (3.5-5.0) g/dL Lipase (23-300) U/L Serum Alcohol mg/dL Influenza Type A (PCR) Not Detected (Not Detectd) Influenza Type B (PCR) Not Detected (Not Detectd) RSV (PCR) Not Detected (Not Detectd) SARS-CoV-2 (PCR) Not Detected (Not Detectd) Disposition <Williams Yousif - Last Filed: 11/09/24 19:10> Is patient prescribed a controlled substance at d/c from ED?: No Time of Disposition: 23:39 <Elyse Zimmerman - Last Filed: 11/10/24 00:49> Clinical Impression: Gastroenteritis Disposition: HOME SELF-CARE Instructions (If sedation given, give patient instructions): Gastroenteritis (ED), Acute Nausea and Vomiting (ED), Acute Diarrhea (ED) Additional Instructions: Return to the emergency department with any new, worsening, or concerning symptoms. Take the Zofran up to every 8 hours as needed for nausea and vomiting. The Lomotil provided can be taken for diarrhea. You can also take the Bentyl prescribed up to 4 times daily to help with abdominal discomfort and diarrhea. Slowly advance your diet as tolerated and remain well-hydrated. Follow up with your primary care provider in 1-2 days. Prescriptions: Dicyclomine [Bentyl] 20 mg PO QID PRN #30 tablet PRN Reason: Gi Upset Ondansetron Odt [Zofran Odt] 4 mg PO Q8HR PRN #20 tab PRN Reason: Nausea And Vomiting Referrals: None,Stated [Primary Care Provider] - 1-2 days
[2024-11-09 19:53] LABS: Basophils % (A) 1 %; Eosinophils # (A) 0.1 k/uL (0-0.7); Eosinophils % (A) 2 %; HCT 46.1 % (39.0-53.0); HGB 15.2 gm/dL (13.0-17.5); Lymphocytes # (A) 1.1 k/uL (1.0-4.8); Lymphocytes % (A) 23 %; MCH 30.9 pg (25.0-35.0); MCHC 32.9 g/dL (31.0-37.0); MCV 93.8 fL (80.0-100.0); Mean Platelet Volume 6.9; Monocytes # (A) 0.4 k/uL (0-1.0); Monocytes % (A) 7 %; Neutrophils # (A) 3.2 k/uL (1.3-7.7); Neutrophils % (A) 64 %; Platelet Count 197 k/uL (150-450); RBC 4.91 m/uL (4.30-5.90)
[2024-11-09 19:55] LABS: ALT 196 U/L (4-49); AST 84 U/L (17-59); African American GFR (CKD) >90 (>60 ml/min/1.73 sqM); Alcohol <10 mg/dL; Alkaline Phosphatase 42 U/L (38-126); Anion Gap 11 mmol/L; Blood Urea Nitrogen 11 mg/dL (9-20); Calcium 9.3 mg/dL (8.4-10.2); Carbon Dioxide 26 mmol/L (22-30); Chloride 100 mmol/L (98-107); Glucose 92 mg/dL (74-99); Lipase 86 U/L (23-300); Non-African American GFR(CKD) >90 (>60 ml/min/1.73 sqM); Sodium 137 mmol/L (137-145); Total Protein 7.6 g/dL (6.3-8.2)
[2024-11-09 20:15] LABS: Influenza A Not Detected (Not Detectd); Influenza B Not Detected (Not Detectd); RSV Not Detected (Not Detectd)
[2024-11-09] MEDS: SODIUM CHLORIDE 0.9% 1,000 ML IV STA (22:22)
[2024-11-09] MEDS: ONDANSETRON 4 MG/2 ML VIAL IVP STA (22:23)
[2024-11-09] MEDS: FAMOTIDINE 20 MG/2 ML VIAL IV STA (22:30)
[2024-11-09] MEDS: DICYCLOMINE 10 MG/ML 2 ML AMP IM STA (22:31)
[2024-11-09] MEDS: DIPHENOX-ATROP STARTER PACK 8 TAB BTL PO STA (23:42)
[2024-11-09] MEDS: ONDANSETRON 4 MG ODT STARTER PACK 2 TAB BTL PO STA (23:43)
[2024-11-09 23:50] VITALS: BP 120/76; PULSE 67; RESP 17; TEMP 98.6
== END 2024-11-09 23:50 | disposition home or self-care (01) ==
LOC: EC 18:15
DX: K52.9 Noninfective gastroenteritis and colitis, unspecified (principal); Z11.52 Encounter for screening for COVID-19
CPT/HCPCS: 36415; 80053; 83605; 83690; 85025; 80320; 87636; 99284; 96374; 96375; 96372; 96361; J0500; J2405; J3490; S0119